=== PATIENT | male | born 1980 | race African-American/Black ===

== ENCOUNTER 2017-08-11 22:19 | Inpatient (IN) | payer SELFPAY ==
[~2017-08-11] VITALS: Ht 193 cm; Wt 72.6 kg
[2017-08-11] MEDS ORDERED: KETOROLAC 30MG/ML VIAL IV STA (23:43)
[2017-08-11] MEDS ORDERED: METHYLPREDNISOLONE SOD SUCC 125 MG/2 ML VIAL IV STA (23:43)
[2017-08-11] MEDS ORDERED: SODIUM CHLORIDE 0.9% 1,000 ML IV ONE (23:43)
[2017-08-11] MEDS ORDERED: ALBUTEROL (0.083%) 2.5MG/3ML NEB HHN STA (23:43)
[2017-08-11] MEDS ORDERED: IPRATROPIUM BROMIDE (0.02%) 0.5MG/2.5ML NEB HHN STA (23:43)
[2017-08-11] MEDS ORDERED: ASPIRIN 81MG TABLET PO ONE (23:45)
[2017-08-12 00:34] LABS: BASOPHILS % 0.9 % (0.0-2.0); EOSINOPHILS % 0.4 % (0.0-5.0); HEMATOCRIT. 41.7 % (42.0-52.0); HEMOGLOBIN. 14.7 g/dL (14.0-18.0); LYMPHOCYTES % 27.3 % (20.0-50.0); MEAN CORPUSCULAR HEMOGLOBIN 33.6 pg (28.0-32.0); MEAN CORPUSCULAR VOLUME 95.6 fL (80.0-94.0); MEAN PLATELET VOLUME 8.6 fl (7.4-10.4); MONOCYTES % 6.5 % (2.0-8.0); NEUTROPHILS % 64.9 % (40.0-76.0); PLATELET 137 x1000/uL (130-400); RED BLOOD CELL COUNT 4.36 mill/uL (4.7-6.1); RED CELL DISTRIBUTION WIDTH 13.6 % (11.6-14.6)
[2017-08-12 00:42] LABS: INR 1.1; PROTHROMBIN TIME 11.2 sec (9.4-11.6)
[2017-08-12 00:48] LABS: CHLORIDE 100 mEq/L (98-107)
[2017-08-12] MEDS: ENOXAPARIN 80MG/0.8ML SYR SUBCUT SCH ×2 (02:07→14:39)
[2017-08-12 05:30] VITALS: BP 144/104
[2017-08-12 07:00] VITALS: BP 140/85
[2017-08-12 08:00] VITALS: BP 143/98
[2017-08-12] MEDS ORDERED: IPRATROPIUM/ALBUTEROL 0.5-3(2.5)MG/3ML NEB INH PRN (08:00)
[2017-08-12] MEDS ORDERED: DOCUSATE SODIUM 100MG CAPSULE PO PRN (08:00)
[2017-08-12] MEDS ORDERED: ACETAMINOPHEN 325MG TABLET PO PRN (08:00)
[2017-08-12] MEDS ORDERED: HYDROCODONE/ACETAMINOPHEN 5/325MG TABLET PO PRN (08:00)
[2017-08-12] MEDS ORDERED: CLONIDINE 0.1MG TABLET PO PRN (08:00)
[2017-08-12] MEDS ORDERED: ONDANSETRON HCL 4MG/2ML VIAL IV PRN (08:00)
[2017-08-12] MEDS: ASPIRIN 81MG EC TABLET PO SCH (09:15)
[2017-08-12] MEDS: AMLODIPINE 10MG TABLET PO SCH (09:16)
[2017-08-12] MEDS ORDERED: GUAIFENESIN 200MG/10ML SUGAR FREE UDC PO PRN (11:45)
[2017-08-12] MEDS ORDERED: IPRATROPIUM/ALBUTEROL 0.5-3(2.5)MG/3ML NEB HHN PRN (11:45)
[2017-08-12 12:00] VITALS: BP 139/103
[2017-08-12 16:00] VITALS: BP 129/95
[2017-08-12 16:16] LABS: CREATINE KINASE MB FRACTION 2.9 ng/mL (0.5-3.6)
[2017-08-12 20:00] VITALS: BP 121/91
[2017-08-12] MEDS: IPRATROPIUM/ALBUTEROL 0.5-3(2.5)MG/3ML NEB HHN SCH (20:17)
[2017-08-12 23:57] LABS: CREATINE KINASE MB FRACTION 3.1 ng/mL (0.5-3.6)
[2017-08-13] VITALS: BP 132/98
[2017-08-13] MEDS: ENOXAPARIN 80MG/0.8ML SYR SUBCUT SCH (02:00)
[2017-08-13] MEDS: IPRATROPIUM/ALBUTEROL 0.5-3(2.5)MG/3ML NEB HHN SCH ×2 (02:02→10:04)
[2017-08-13 04:00] VITALS: BP 133/84
[2017-08-13 06:20] LABS: CHLORIDE 101 mEq/L (98-107)
[2017-08-13 06:22] LABS: BASOPHILS % 0.2 % (0.0-2.0); EOSINOPHILS % 0.1 % (0.0-5.0); HEMATOCRIT. 40.8 % (42.0-52.0); HEMOGLOBIN. 13.7 g/dL (14.0-18.0); LYMPHOCYTES % 12.4 % (20.0-50.0); MEAN CORPUSCULAR HEMOGLOBIN 32.5 pg (28.0-32.0); MEAN CORPUSCULAR VOLUME 96.7 fL (80.0-94.0); MEAN PLATELET VOLUME 9.4 fl (7.4-10.4); MONOCYTES % 5.3 % (2.0-8.0); PLATELET 136 x1000/uL (130-400); RED BLOOD CELL COUNT 4.22 mill/uL (4.7-6.1); RED CELL DISTRIBUTION WIDTH 13.3 % (11.6-14.6)
[2017-08-13 06:30] LABS: HDL CHOLESTEROL 73 mg/dL (40-59); LDL CHOLESTEROL 70 mg/dL (5-100)
[2017-08-13] MEDS: AMLODIPINE 10MG TABLET PO SCH (10:42)
[2017-08-13] MEDS: ASPIRIN 81MG EC TABLET PO SCH (10:42)
[2017-08-13 11:02] VITALS: BP 129/96
[2017-08-13] MEDS ORDERED: ENOXAPARIN 80MG/0.8ML SYR SUBCUT SCH (14:27)
== END 2017-08-13 11:20 | disposition home or self-care (01) | DRG 140 ==
LOC: ER 23:19 → 5WST 23:48 → EDBEDREQ 08-12 03:30 → ENRESERV 08-12 03:38 → EDBEDREQ 08-12 04:32
PROVIDERS: ADMIT Hospitalist; ATTEND Hospitalist
DX: J44.0 Chronic obstructive pulmonary disease with (acute) lower respiratory infection (principal); I31.9 Disease of pericardium, unspecified; I50.9 Heart failure, unspecified; F17.200 Nicotine dependence, unspecified, uncomplicated; F12.90 Cannabis use, unspecified, uncomplicated; J20.9 Acute bronchitis, unspecified
CPT/HCPCS: 36415; 71045; 80053; 80061; 82550; 82553; 83605; 83880; 84484; 85025; 85610; 87040; 87804; 93005; 94640; J1650; J1885; J2930; J7030; J7611; J7620